=== PATIENT | male | born 1990 | race American Indian/Alaskan Native ===

== ENCOUNTER 2019-06-10 20:37 | Emergency (ER) | payer SELFPAY ==
[2019-06-10 20:56] VITALS: BP 167/90
--- NOTE | 2019-06-10 21:17 | Emergency Department Report ---
Blank Doc - Documentation Documentation: 28-year-old male that presents with sob, cough, and chest congestion. This initial assessment/diagnostic orders/clinical plan/treatment(s) is/are subject to change based on patient's health status, clinical progression and re- assessment by fellow clinical providers in the ED. Further treatment and workup at subsequent clinical providers discretion. Patient/guardians urged not to elope from the ED as their condition may be serious if not clinically assessed and managed. Initial orders include: 1- Patient sent to [facility] for further evaluation and treatment 2- cxr
--- NOTE | 2019-06-10 22:27 | XRay Report ---
CHEST 2 VIEWS INDICATION / CLINICAL INFORMATION: cough. COMPARISON: None available. FINDINGS: SUPPORT DEVICES: None. HEART / MEDIASTINUM: No significant abnormality. LUNGS / PLEURA: No significant pulmonary or pleural abnormality. No pneumothorax. ADDITIONAL FINDINGS: No significant additional findings. IMPRESSION: No acute finding. Signer Name: Shiv Chapa MD Signed: 06/10/2019 10:23 PM Workstation Name: [id number]
--- NOTE | 2019-06-10 23:51 | Emergency Department Report ---
- General Chief Complaint: Upper Respiratory Infection Stated Complaint: CHEST TIGHTNESS,COUGH,BODY ACHES Time Seen by Provider: 06/10/19 21:16 Source: patient Mode of arrival: Ambulatory Limitations: No Limitations - History of Present Illness MD Complaint: cough, nasal congestion -: days(s) (3) Quality: dull Consistency: constant Improves With: nothing Worsens With: nothing Associated Symptoms: cough. denies: myalgias, diaphoresis, chest pain, shortness of breath, nausea, vomiting, confusion, right sweats, weight loss Treatments Prior to Arrival: none - Related Data Previous Rx's Medication Instructions Recorded Last Taken Type Albuterol INH(or & Nicu Only) 2 puff IH QID PRN #1 inhalation 06/10/19 Unknown Rx [ProAir HFA Inhaler] guaiFENesin/CODEINE [Robitussin AC] 5 ml PO Q6H PRN #120 ml 06/10/19 Unknown Rx predniSONE [Deltasone] 20 mg PO QDAY #5 tab 06/10/19 Unknown Rx Allergies Allergy/AdvReac Type Severity Reaction Status Date / Time iodine Allergy Swelling Verified 06/10/19 20:41 shellfish derived Allergy Swelling Verified 06/10/19 20:41 ED Review of Systems ROS: Stated complaint: CHEST TIGHTNESS,COUGH,BODY ACHES Other details as noted in HPI Comment: All other systems reviewed and negative ED Past Medical Hx - Past Medical History Previous Medical History?: Yes Hx Asthma: Yes - Social History Smoking Status: Never Smoker Substance Use Type: None - Medications Home Medications: Home Medications Medication Instructions Recorded Confirmed Last Taken Type Albuterol INH(or & Nicu Only) 2 puff IH QID PRN #1 inhalation 06/10/19 Unknown Rx [ProAir HFA Inhaler] guaiFENesin/CODEINE [Robitussin AC] 5 ml PO Q6H PRN #120 ml 06/10/19 Unknown Rx predniSONE [Deltasone] 20 mg PO QDAY #5 tab 06/10/19 Unknown Rx ED Physical Exam - General Limitations: No Limitations General appearance: alert, in no apparent distress - Head Head exam: Present: atraumatic, normocephalic - Eye Eye exam: Present: normal appearance, PERRL, EOMI - ENT ENT exam: Present: normal exam, normal orophraynx, mucous membranes moist - Neck Neck exam: Present: normal inspection - Respiratory Respiratory exam: Present: normal lung sounds bilaterally, rhonchi. Absent: respiratory distress - Cardiovascular Cardiovascular Exam: Present: regular rate, normal rhythm. Absent: systolic murmur, diastolic murmur, rubs, gallop - GI/Abdominal GI/Abdominal exam: Present: soft, normal bowel sounds - Rectal Rectal exam: Present: deferred - Extremities Exam Extremities exam: Present: normal inspection - Back Exam Back exam: Present: normal inspection - Neurological Exam Neurological exam: Present: alert, oriented X3 - Psychiatric Psychiatric exam: Present: normal affect, normal mood - Skin Skin exam: Present: warm, dry, intact, normal color. Absent: rash ED Course Vital Signs 06/10/19 06/10/19 20:54 20:55 Temperature 98.1 F 98.1 F Pulse Rate 59 L 64 Respiratory 16 16 Rate Blood Pressure 167/90 Blood Pressure 167/90 [Right] O2 Sat by Pulse 100 100 Oximetry ED Medical Decision Making - Radiology Data Radiology results: report reviewed [facility] [address] [place] [address] XRay Report Signed Patient: CIERRA AARON MR#: [id number] : 1990 Acct:[id number] Age/Sex: 28 / M ADM Date: 06/10/19 Loc: ED Attending Dr: Ordering Physician: JOE FERGUSON NP Date of Service: 06/10/19 Procedure(s): XR chest routine 2V Accession Number(s): [id number] cc: JOE FERGUSON NP Fluoro Time In Minutes: CHEST 2 VIEWS INDICATION / CLINICAL INFORMATION: cough. COMPARISON: None available. FINDINGS: SUPPORT DEVICES: None. HEART / MEDIASTINUM: No significant abnormality. LUNGS / PLEURA: No significant pulmonary or pleural abnormality. No pneumothorax. ADDITIONAL FINDINGS: No significant additional findings. IMPRESSION: No acute finding. Signer Name: Shiv Chapa MD Signed: 06/10/2019 10:23 PM Workstation Name: [id number] Transcribed By: PARISH Dictated By: Shiv Chapa MD Electronically Authenticated By: Shiv Chapa MD Signed Date/Time: 06/10/192222 DD/ 21 TD/TT: - Medical Decision Making This patient presents with acute cough, most consistent with bronchitis. Differential diagnosis includes URI/influenza/bronchitis. Presentation not consistent with acute bacterial pneumonia, asthma, transient airway hyperresponsiveness. Presentation not consistent with chronic causes of cough (including GERD, asthma, postnasal discharge, medication side effect, CHF, lung cancer or mass). Plan: Normal CXR, supportive care, reassess Critical care attestation.: If time is entered above; I have spent that time in minutes in the direct care of this critically ill patient, excluding procedure time. ED Disposition Clinical Impression: Bronchitis Disposition: DC- TO HOME OR SELFCARE Is pt being admited?: No Does the pt Need Aspirin: No Condition: Stable Instructions: Acute Bronchitis (ED), Chronic Bronchitis (ED) Prescriptions: predniSONE [Deltasone] 20 mg PO QDAY #5 tab Albuterol INH(or & Nicu Only) [ProAir HFA Inhaler] 2 puff IH QID PRN #1 inhalation PRN Reason: Shortness Of Breath guaiFENesin/CODEINE [Robitussin AC] 5 ml PO Q6H PRN #120 ml PRN Reason: Cough Referrals: PRIMARY CARE, [Primary Care Provider] - 3-5 Days [facility] [Provider Group] - 3-5 Days [facility] [Provider Group] - 3-5 Days
== END 2019-06-10 23:48 | disposition home or self-care (01) ==
LOC: ED 20:37
DX: J40 Bronchitis, not specified as acute or chronic (principal); Z91.013 Allergy to seafood; Z91.09 Other allergy status, other than to drugs and biological substances
CPT/HCPCS: 71046